=== PATIENT | female | born 1985 | race Asian ===

== ENCOUNTER 2019-04-15 16:13 | Emergency (ER) | payer SELFPAY ==
[~2019-04-15] VITALS: Ht 157.5 cm; Wt 52.6 kg
[2019-04-15 16:42] LABS: *BILIRUBIN,URIN NEGATIVE (NEGATIVE); *BLOOD, URINE 1+ (NEGATIVE); *CLARITY,URINE SLIGHTLY CLOUDY (CLEAR); *COLOR,URINE YELLOW (YELLOW); *KETONES,URINE NEGATIVE (NEGATIVE); *UROBILINOGEN,URINE 0.2 E.U./dl (NORMAL); LEUKOCYTE ESTERASE ,URINE 2+ (NEGATIVE); NITRITE, URINE NEGATIVE (NEGATIVE); UGLUCOSE NEGATIVE (NEGATIVE)
[2019-04-15 16:43] LABS: *URINE HCG, QUAL NEGATIVE (NEGATIVE)
[2019-04-15 16:48] LABS: WBC,URINE 50-80 /HPF (0-3)
[2019-04-15 16:49] LABS: BACTERIA,URINE FEW /HPF (NONE SEEN); SQUAMOUS EPITHELIAL CELL,UR FEW /HPF (NONE SEEN)
[2019-04-15] MEDS ORDERED: SULFAMETH/TRIMETH 800/160 MG TABLET ONE (16:58)
[2019-04-15] MEDS ORDERED: SULFAMETH/TRIMETH 800/160 MG TABLET PO ONE (17:00)
--- NOTE | 2019-04-15 17:09 | NUR ---
Patient discharged to home in stable conditon. Written and verbal after care instructions given. Patient verbalizes understanding of instructions.
== END 2019-04-15 17:10 | disposition home or self-care (01) ==
LOC: ER 16:19
DX: N39.0 Urinary tract infection, site not specified (principal)
CPT/HCPCS: 84703; 87086; A4663